=== PATIENT | male | born 1965 | race Asian ===

== ENCOUNTER 2020-08-02 12:14 | Observation (INO) | payer OTHER ==
[2020-07-30 17:33] LABS: BASOPHILS # (AUTO) 0.1 (0.0-0.1); BASOPHILS % 0.8 % (0.0-1.0); EOSINOPHILS # (AUTO) 0.2 (0.0-0.4); EOSINOPHILS % 2.6 % (0.0-6.0); HEMATOCRIT 42.9 % (38.2-49.6); HEMOGLOBIN 13.9 g/dL (14.0-18.0); LYMPHOCYTES # (AUTO) 1.8 (1.0-3.2); LYMPHOCYTES % 28.8 % (18.0-39.1); MEAN CORPUSCULAR HEMOGLOBIN 28.3 pg (28-32); MEAN CORPUSCULAR HGB CONC 32.4 g/dL (31-35); MEAN CORPUSCULAR VOLUME 87.2 fL (81-99); MONOCYTES # (AUTO) 0.6 (0.2-0.8); MONOCYTES % 10.1 % (4.4-11.3); NEUTROPHILS # (AUTO) 3.5 (2.1-6.9); NEUTROPHILS % 57.5 % (38.7-80.0); PLATELET COUNT 267 x10e3/uL (140-360); RED BLOOD COUNT 4.92 x10e6/uL (4.3-5.7); RED CELL DISTRIBUTION WIDTH 12.3 % (11.7-14.4)
[~2020-08-02] VITALS: Ht 167.6 cm; Wt 64.5 kg
[~2020-08-02 12:14] MED LIST: AMLODIPINE BESYL5 MG PO; LIDOCAINE HCL 2% LOCAL INJ 5 ML SDV VIAL INJ ONE; LOSARTAN POTASS25 MG PO; PHENYLEPHRINE HCL 1% 10 MG/ML VIAL ONE; POVIDONE IODINE 0.05% 0.05 % ML PO ONE; PROPOFOL IV EMULSION 10 MG/ML 20 ML VIAL ONE
[2020-08-02] MEDS ORDERED: FENTANYL CITRATE/PF 100MCG/2 ML INJ ONE (13:31)
[2020-08-02] MEDS ORDERED: MIDAZOLAM HCL 2 MG/2 ML VIAL ONE (13:31)
[2020-08-02] MEDS ORDERED: LACTATED RINGER'S 1,000 ML INJ SCH (15:00)
[2020-08-02 16:42] VITALS: BP 131/90
[2020-08-02 16:45] VITALS: BP 131/90
[2020-08-02] MEDS ORDERED: AMLODIPINE BESYLATE 5 MG TAB PO SCH (17:00)
[2020-08-02 20:26] VITALS: BP 119/78
[2020-08-02 21:00] VITALS: BP 119/78
[2020-08-02] MEDS: HYDROCORTISONE ACETATE 25 MG/SUPP.RECT SUPP RC SCH (21:59)
[2020-08-03] VITALS: BP 121/76
[2020-08-03 04:00] VITALS: BP 114/89
[2020-08-03 06:29] LABS: ANION GAP 13.7 mmol/L (8-16); BLOOD UREA NITROGEN 19 mg/dL (7-26); BUN/CREATININE RATIO 20 (6-25); CALCIUM 8.9 mg/dL (8.4-10.2); CARBON DIOXIDE 27 mmol/L (22-29); CHLORIDE 100 mmol/L (98-107); CREATININE, SERUM 0.96 mg/dL (0.72-1.25); EST GLOMERULAR FILTRATION RATE > 60 ML/MIN (60-); GLUCOSE 90 mg/dL (74-118); POTASSIUM 3.7 mmol/L (3.5-5.1); SODIUM 137 mmol/L (136-145)
[2020-08-03 08:00] VITALS: BP 121/81
[2020-08-03 08:17] VITALS: BP 121/81
[2020-08-03] MEDS ORDERED: NORVASC5 MG PO (08:20)
[2020-08-03] MEDS ORDERED: ANUCORT-HC25 MG RC (08:20)
[2020-08-03] MEDS ORDERED: LOSARTAN-HCTZ1 EACH PO (08:20)
[2020-08-03] MEDS: HYDROCORTISONE ACETATE 25 MG/SUPP.RECT SUPP RC SCH (09:00)
[2020-08-03] MEDS ORDERED: LOSARTAN POTASSIUM 100 MG TAB PO SCH (09:00)
[2020-08-03] MEDS ORDERED: HYDROCHLOROTHIAZIDE 25 MG TAB PO SCH (09:00)
[2020-08-03] MEDS ORDERED: AMLODIPINE BESYLATE 5 MG TAB PO SCH (21:00)
== END 2020-08-03 10:00 | disposition home or self-care (01) ==
LOC: OR 12:14 → PACU V 14:39 → MED/SURG3 15:50
PROVIDERS: ADMIT Internal Medicine; ATTEND Internal Medicine
DX: R53.83 Other fatigue (principal); I10 Essential (primary) hypertension; T88.59XA Other complications of anesthesia, initial encounter; T41.1X5A Adverse effect of intravenous anesthetics, initial encounter; Y92.234 Operating room of hospital as the place of occurrence of the external cause; K63.5 Polyp of colon; K59.09 Other constipation; K64.4 Residual hemorrhoidal skin tags
CPT/HCPCS: 36415 ×2; 45380; 45384; 80048; 85025; 93005; G0378 ×2; J2001; J2250; J2370; J2704; J3010; J7121; 45378; 45385